=== PATIENT | female | born 1950 | race Caucasian/White ===

== ENCOUNTER 2018-01-05 09:03 | Day surgery (SDC) | payer MEDICARE, BC ==
[2018-01-05] VITALS (13 sets, daily range): BP systolic 104–141; BP diastolic 53–79
[~2018-01-05] VITALS: Ht 167.6 cm; Wt 96.1 kg
[2018-01-05] MEDS ORDERED: DULO60CA45 PO (09:27)
[2018-01-05] MEDS ORDERED: AMLO2.5T2 PO (09:29)
[2018-01-05] MEDS ORDERED: ARIP5TAB4 PO (09:29)
[2018-01-05] MEDS ORDERED: BUPR150T8 PO (09:29)
[2018-01-05] MEDS ORDERED: normal saline 1000ml 1,000 ML IV SCH (09:35)
[2018-01-05] MEDS ORDERED: diphenhydrAMINE 25mg capsule PO PRN (09:35)
[2018-01-05] MEDS ORDERED: nitroGLYCERIN 0.4mg SUBLingual tab SL PRN (09:35)
[2018-01-05] MEDS ORDERED: LORazepam 0.5 MG tablet PO PRN (09:35)
[2018-01-05 10:08] LABS: BASOPHILS # (AUTO) 0.1 X10'3 (0-0.2); BASOPHILS % (AUTO) 0.8 % (0-1); EOSINOPHILS # (AUTO) 0.3 X10'3 (0-0.9); EOSINOPHILS % (AUTO) 3.3 % (0-6); LYMPHOCYTES # (AUTO) 1.8 X10'3 (1.1-4.8); LYMPHOCYTES % (AUTO) 22.8 % (21-51); MEAN CORPUSCULAR HEMOGLOBIN 28.1 PG (27.0-31.0); MEAN CORPUSCULAR HGB CONC 33.4 % (33.0-36.5); MEAN CORPUSCULAR VOLUME 84.3 FL (78-98); MEAN PLATELET VOLUME 7.3 FL (7.4-10.4); MONOCYTES # (AUTO) 0.6 X10'3 (0-0.9); NEUTROPHILS # (AUTO) 5.2 X10'3 (1.8-7.7); NEUTROPHILS % (AUTO) 65.1 % (42-75); PRE OP HEMATOCRIT 40.6 % (35.0-45.0); PRE OP HEMOGLOBIN 13.6 g/dL (12.0-16.0); PRE OP PLATELET COUNT 322 X10'3 (140-440); RED BLOOD COUNT 4.82 X10'6 (4.20-5.60)
[2018-01-05 10:16] LABS: ALBUMIN 3.7 G/DL (3.4-5.0); ANION GAP 11 (8-16); BLOOD UREA NITROGEN 18 MG/DL (7-18); BUN/CREATININE RATIO 24.3 (6.6-38.0); CALCIUM 8.8 MG/DL (8.5-10.1); CHLORIDE 103 MMOL/L (99-107); CREATININE 0.74 MG/DL (0.40-0.90); GLUCOSE 84 MG/DL (70-104); INR 0.9 INR; POTASSIUM 3.8 MMOL/L (3.5-5.1); PROTHROMBIN TIME 9.5 SECONDS (9.0-12.0); SODIUM 142 MMOL/L (135-145); TOTAL CARBON DIOXIDE 27.6 MMOL/L (24-32); eGFR 79 ML/MIN
[2018-01-05] MEDS ORDERED: LIDOcaine 1% (10mg/ml)w/preservative injection 20ml MDV ONE (12:01)
[2018-01-05] MEDS ORDERED: iohexol 350 MG/ML 50ML vial IV ONE (12:01)
[2018-01-05] MEDS ORDERED: fentaNYL/PF 50MCG/1 ML 2ML syringe ONE (12:29)
[2018-01-05] MEDS ORDERED: midazolam 2 mg/2 ml injection ONE (12:29)
[2018-01-05] MEDS ORDERED: HYDROcodone/acetaminophen 5mg/325mg tablet PO PRN (14:15)
[2018-01-05] MEDS ORDERED: ondansetron/PF 4mg/2ml inj IV PRN (14:15)
[2018-01-05] MEDS ORDERED: HYDROcodone/acetaminophen 10/325mg tab PO PRN (14:20)
[2018-01-05] MEDS ORDERED: OXAZEpam 15mg capsule PO PRN (14:20)
[2018-01-05] MEDS ORDERED: proCHLORperazine 10 MG/2 ml inj IV PRN (14:20)
== END 2018-01-05 19:28 | disposition home or self-care (01) ==
LOC: SSTAY O 09:03
PROVIDERS: ATTEND Internal Medicine Cardiovascular Disease
DX: I25.10 Atherosclerotic heart disease of native coronary artery without angina pectoris (principal); I10 Essential (primary) hypertension; F32.9 Major depressive disorder, single episode, unspecified; F41.8 Other specified anxiety disorders; Z90.711 Acquired absence of uterus with remaining cervical stump; Z87.891 Personal history of nicotine dependence; Z90.49 Acquired absence of other specified parts of digestive tract; Z98.890 Other specified postprocedural states; Z79.899 Other long term (current) drug therapy; Z82.3 Family history of stroke
CPT/HCPCS: 36415; 71046; 80048; 85025; 85610; 93005; 93458; 99152; 99153; A6257; A6258; C1760; C1769; J1644; J2001; J2250; J3010; J7030; Q0163; Q9967; A4620

== ENCOUNTER 2018-04-16 04:59 | Inpatient (IN) | payer MEDICARE, BC ==
[2018-04-08 11:20] LABS: BASOPHILS # (AUTO) 0.1 X10'3 (0-0.2); BASOPHILS % (AUTO) 1.5 % (0-1); EOSINOPHILS # (AUTO) 0.4 X10'3 (0-0.9); EOSINOPHILS % (AUTO) 5.6 % (0-6); LYMPHOCYTES # (AUTO) 1.9 X10'3 (1.1-4.8); LYMPHOCYTES % (AUTO) 25.7 % (21-51); MEAN CORPUSCULAR HEMOGLOBIN 27.3 PG (27.0-31.0); MEAN CORPUSCULAR HGB CONC 31.8 % (33.0-36.5); MEAN CORPUSCULAR VOLUME 85.9 FL (78-98); MEAN PLATELET VOLUME 7.4 FL (7.4-10.4); MONOCYTES # (AUTO) 0.6 X10'3 (0-0.9); MONOCYTES % (AUTO) 7.7 % (2-12); NEUTROPHILS # (AUTO) 4.3 X10'3 (1.8-7.7); NEUTROPHILS % (AUTO) 59.5 % (42-75); PRE OP HEMATOCRIT 44.7 % (35.0-45.0); PRE OP HEMOGLOBIN 14.2 g/dL (12.0-16.0); PRE OP PLATELET COUNT 359 X10'3 (140-440); RED BLOOD COUNT 5.21 X10'6 (4.20-5.60); RED CELL DISTRIBUTION WIDTH 12.8 % (11.5-14.5)
[2018-04-08 11:33] LABS: ALBUMIN 3.8 G/DL (3.4-5.0); ALKALINE PHOSPHATASE 125 IU/L (46-116); BLOOD UREA NITROGEN 21 MG/DL (7-18); BUN/CREATININE RATIO 32.8 (6.6-38.0); CALCIUM 9.3 MG/DL (8.5-10.1); CHLORIDE 100 MMOL/L (99-107); CREATININE 0.64 MG/DL (0.40-0.90); PRE OP ALT 23 U/L (30-65); PRE OP ANION GAP 10 (8-16); PRE OP AST 17 U/L (10-37); PRE OP BILIRUB, TOTAL 0.2 MG/DL (0.0-1.0); PRE OP GLUCOSE 94 MG/DL (70-104); PRE OP POTASSIUM 4.2 MMOL/L (3.4-5.1); PRE OP SODIUM 140 MMOL/L (135-145); TOTAL CARBON DIOXIDE 30.2 MMOL/L (24-32); TOTAL PROTEIN 7.6 G/DL (6.4-8.2); eGFR > 90 ML/MIN
[2018-04-08 11:39] LABS: CLARITY,URINE CLEAR (Clear); COLOR,URINE YELLOW (Yellow); GLUCOSE, URINE NEGATIVE (Neg); KETONES,URINE NEGATIVE (Neg); LEUKOCYTE ESTERASE ,URINE NEGATIVE (Neg); NITRITES, URINE NEGATIVE (Neg); OCCULT BLOOD,URINE NEGATIVE (Neg); PH,URINE 6.5 (4.8-8.0); PROTEIN,URINE NEGATIVE (Neg); UROBILINOGEN,URINE 0.2 E.U/dL (0.2-1.0)
[2018-04-08 11:41] LABS: UA COLLECTION TYPE CLN CATCH MIDSTREAM
[2018-04-16] VITALS (22 sets, daily range): BP systolic 103–136; BP diastolic 51–78
[~2018-04-16] VITALS: Ht 167.6 cm; Wt 97.2 kg
[~2018-04-16 04:59] MED LIST: AMLO2.5T2 PO; ARIP5TAB4 PO; BUPR150T8 PO; DULO60CA45 PO
[2018-04-16] MEDS ORDERED: ringers solution, lacted 1,000 ML IV SCH ×2 (05:00→08:04)
[2018-04-16] MEDS ORDERED: famotidine 20mg tablet PO ONE (05:30)
[2018-04-16] MEDS ORDERED: gabapentin 300mg capsule PO ONE (05:30)
[2018-04-16] MEDS ORDERED: tranexamic acid inj. 1,000 MG in normal saline 100 ML IV ONE (05:30)
[2018-04-16] MEDS ORDERED: acetaminophen 325mg tablet PO ONE (05:30)
[2018-04-16] MEDS ORDERED: oxyCODONE SR 10mg (sust. release) tab -2 tabs (20mg) PO ONE (05:30)
[2018-04-16] MEDS ORDERED: cefazolin/dext.iso 2gm/100 ML IV ONE (05:30)
[2018-04-16] MEDS ORDERED: vancomycin inj 1,500 MG in normal saline 300ml IV soln IV ONE (05:30)
[2018-04-16] MEDS ORDERED: metoclopramide 5 mg/ml inj IV ONE (05:30)
[2018-04-16] MEDS ORDERED: celeCOXIB 100mg capsule PO ONE (05:30)
[2018-04-16] MEDS ORDERED: acetaminophen 325mg tablet PO PRN (06:00)
[2018-04-16] MEDS ORDERED: magnesium hydroxide 30ml (MOM) UD suspension PO PRN (06:00)
[2018-04-16] MEDS ORDERED: LIDOcaine 1% (10mg/ml) 2ml vial ONE ×2 (06:00→08:25)
[2018-04-16] MEDS ORDERED: diphenhydrAMINE 25mg capsule PO PRN ×2 (06:00)
[2018-04-16] MEDS ORDERED: bisacodyl 10mg suppository rectal RC PRN (06:00)
[2018-04-16] MEDS ORDERED: HYDROmorphone inj. 0.5 MG/0.5 ML DISP.SYRIN IV PRN (06:00)
[2018-04-16] MEDS ORDERED: ondansetron/PF 4mg/2ml inj IV PRN ×2 (06:00→08:05)
[2018-04-16] MEDS ORDERED: ROPIVAcaine inj 250 MG, epiNEPHrine inj 0.5 MG, CloNIDine/PF inj 80 MCG in normal salin... IU ONE (06:45)
[2018-04-16] MEDS ORDERED: vancomycin 1,000mg inj ONE (06:53)
[2018-04-16] MEDS ORDERED: ketorolac trometh. 30mg/ml inj. ONE (06:53)
[2018-04-16] MEDS ORDERED: fentaNYL/PF 50MCG/1 ML 2ML syringe ONE (07:13)
[2018-04-16] MEDS ORDERED: MIDAZolam 1mg/ml 10ml vial ONE (07:13)
[2018-04-16] MEDS ORDERED: BUPIVAcaine/dex-water/PF 7.5 mg/ml 2ml ampul ONE (07:15)
[2018-04-16] MEDS: multivitamins, therapeutics tablet PO SCH (08:00)
[2018-04-16] MEDS: ascorbic acid 500mg tablet PO SCH ×2 (08:00→20:04)
[2018-04-16] MEDS: buPROPion SR 150mg tablet PO SCH (08:00)
[2018-04-16] MEDS: gabapentin 300mg capsule PO SCH ×3 (08:00→20:04)
[2018-04-16] MEDS: aripiprazole 5mg tablet PO SCH (08:00)
[2018-04-16] MEDS: amLODIPine 2.5mg tablet PO SCH (08:00)
[2018-04-16] MEDS ORDERED: morphine 4 MG/ML inj SYRINge IV PRN ×2 (08:05)
[2018-04-16] MEDS ORDERED: proCHLORperazine 10 MG/2 ml inj IV PRN (08:05)
[2018-04-16] MEDS ORDERED: meperidine/PF 25mg/ml syringe IV PRN ×3 (08:05)
[2018-04-16] MEDS ORDERED: BUPIVAcaine/PF 2.5mg/ml (0.25%) 10ml vial ONE (08:25)
[2018-04-16] MEDS ORDERED: triamcinolone acetonide 40mg/ml inj ONE (08:25)
[2018-04-16] MEDS: aspirin 325mg tablet PO SCH (08:30)
[2018-04-16] MEDS ORDERED: PAIN PUMP IJ SCH (08:40)
[2018-04-16] MEDS ORDERED: ROPIVACAINE HCL IJ SCH (08:40)
--- NOTE | 2018-04-16 09:58 | NUR ---
Received from OR via [facility]TH[facility] BED [facility] , accompanied by Anesthesiologist JSOÉ LUIS and report given by Anesthesiolgist. PATIENT WITH 20G PIV IN LEFT HAND RUNNING LR AT 100. DENIES PAIN. SENSATION LEVEL AT L1 CURRENTLY. ON Q HOOKED UP AT 8CC. PATIENT WITH + DP TO RIGHT FOOT. KNEE WRAP AND POWDER PACK IN PLACE. NO DRAINAGE PRESENT. SCDS AND KAHLIL CELIS. 3L NASAL CANNULA ON WITH 98% SATURATIONS. Addendum: 04/16/18 at 1030 by Ja Velázquez RN, RN Amended: Links added.
--- NOTE | 2018-04-16 11:38 | NUR ---
Report called to receiving nurse. Transferred via ORTHO BED WITHO OH WITH ONE BAG OF Belongings . Special Issues communicated to receiving nurse SUSANNE WELCH. BED LOW, CALL LIGHT PRESENT. DENIES PAIN. ALL LINES INTACT. VSS. Addendum: 04/16/18 at 1149 by Ja Velázquez RN, RN Amended: Links added.
--- NOTE | 2018-04-16 11:40 | NUR ---
Pt transferred from Recovery Room to 4015b via bed. Pt drowsy but easily aroused. Pt denied any pain or discomfort. VSS. Dressing to R hip area CDI with ON Q pump running at 8ml/her per order. Addendum: 04/16/18 at 1500 by Landon Driver RN Dressing to R Knee, not R hip.
[2018-04-16] MEDS ORDERED: TRANEXAMIC ACID IV ONE (13:00)
[2018-04-16] MEDS ORDERED: NORMAL SALINE IV ONE (13:00)
[2018-04-16] MEDS: potassium cl 20mEq in 1/2 NS 1,000 ML IV SCH ×2 (13:01→13:56)
--- NOTE | 2018-04-16 13:10 | NUR ---
Pt reported R hip pain at this time. Increased ON Q Pump to 10ml/hr per order. Addendum: 04/16/18 at 1500 by Landon Driver RN R knee pain, not R hip.
[2018-04-16] MEDS ORDERED: cefazolin/dext.iso 2gm/100ml 100 ML IV SCH (14:00)
--- NOTE | 2018-04-16 14:20 | NUR ---
Pt reported decreased R Knee pain.
--- NOTE | 2018-04-16 15:30 | NUR ---
ON Q pump increased to 12ml/hr per order for pain of 6/10.
--- NOTE | 2018-04-16 16:32 | NUR ---
Cal 04/20 ^ pro ed done Written high protein education handout provided with verbal review r/t wound heal. Addendum: 04/16/18 at [address] Amended: Links added.
[2018-04-16] MEDS: cefazolin/dext.iso 2gm/100ml 100 ML IV SCH (16:43)
--- NOTE | 2018-04-16 18:09 | NUR ---
PATIENT REPORT RECEIVED FROM SUSANNE WELCH.
--- NOTE | 2018-04-16 18:10 | NUR ---
Increased ON Q Pump to 14ml/hr to R knee for pt report of increased pain during Bedside report with oncoming nurse Nora Rice RN.
[2018-04-16] MEDS: sennosides 8.6mg tablet PO SCH (20:06)
[2018-04-17] MEDS: cefazolin/dext.iso 2gm/100ml 100 ML IV SCH ×2 (00:01→07:57)
[2018-04-17] MEDS: potassium cl 20mEq in 1/2 NS 1,000 ML IV SCH ×4 (00:05→19:29)
[2018-04-17 02:00] VITALS: BP 127/56
[2018-04-17] MEDS: oxyCODONE/APAP 10/325mg tablet PO PRN ×4 (05:26→18:52)
--- NOTE | 2018-04-17 06:00 | NUR ---
PATIENT REFUSED MILK OF MAG. LAST BM 04/12/18.
--- NOTE | 2018-04-17 06:06 | NUR ---
PATIENT REPORT GIVEN TO SUSANNE WELCH.
[2018-04-17 06:22] LABS: BASOPHILS % (AUTO) 0.1 % (0-1); EOSINOPHILS % (AUTO) 0 % (0-6); HEMATOCRIT 33.6 % (35.0-45.0); HEMOGLOBIN 11.1 g/dl (12.0-16.0); LYMPHOCYTES # (AUTO) 0.6 X10'3 (1.1-4.8); LYMPHOCYTES % (AUTO) 5.9 % (21-51); MEAN CORPUSCULAR HEMOGLOBIN 28.5 PG (27.0-31.0); MEAN CORPUSCULAR VOLUME 86.4 FL (78-98); MEAN PLATELET VOLUME 7.3 FL (7.4-10.4); MONOCYTES # (AUTO) 0.2 X10'3 (0-0.9); MONOCYTES % (AUTO) 1.8 % (2-12); NEUTROPHILS # (AUTO) 8.6 X10'3 (1.8-7.7); NEUTROPHILS % (AUTO) 92.2 % (42-75); PLATELET COUNT 265 X10'3 (140-440); RED BLOOD COUNT 3.89 X10'6 (4.20-5.60); RED CELL DISTRIBUTION WIDTH 12.6 % (11.5-14.5); WHITE BLOOD COUNT 9.4 X10'3 (4.5-11.0)
[2018-04-17 06:46] LABS: ANION GAP 9 (8-16); CHLORIDE 105 MMOL/L (99-107); POTASSIUM 3.9 MMOL/L (3.5-5.1); SODIUM 139 MMOL/L (135-145); TOTAL CARBON DIOXIDE 25.2 MMOL/L (24-32)
[2018-04-17 07:00] VITALS: BP 149/61
[2018-04-17] MEDS: aspirin 325mg tablet PO SCH (07:57)
[2018-04-17] MEDS: ascorbic acid 500mg tablet PO SCH ×2 (07:57→20:27)
[2018-04-17] MEDS: amLODIPine 2.5mg tablet PO SCH (07:57)
[2018-04-17] MEDS: aripiprazole 5mg tablet PO SCH (07:58)
[2018-04-17] MEDS: buPROPion SR 150mg tablet PO SCH (07:58)
[2018-04-17] MEDS: gabapentin 300mg capsule PO SCH ×3 (08:04→20:27)
[2018-04-17] MEDS: multivitamins, therapeutics tablet PO SCH (08:05)
[2018-04-17] MEDS: duloxetine 30mg CAPSULE.DR PO SCH (08:05)
[2018-04-17 10:01] VITALS: BP 173/78
[2018-04-17] MEDS: HYDROmorphone 1 mg/ml syringe IV PRN (10:41)
[2018-04-17 18:00] VITALS: BP 127/55
--- NOTE | 2018-04-17 18:30 | NUR ---
Patient in room ORTHO 4015. I have received report from SUSANNE WELCH and had the opportunity to ask questions and assume patient care.
[2018-04-17] MEDS: sennosides 8.6mg tablet PO SCH (20:27)
[2018-04-17] MEDS: celeCOXIB 100mg capsule PO SCH (20:27)
[2018-04-17 22:00] VITALS: BP 143/67
--- NOTE | 2018-04-18 00:15 | NUR ---
ON-Q MEDS. CONSUMED AND ON-Q CATHETER REMOVED AND PT. TOLERATED PROCEDURE WELL.
[2018-04-18] MEDS: oxyCODONE/APAP 5-325mg tablet PO PRN ×4 (03:48→18:52)
[2018-04-18] MEDS: HYDROmorphone 1 mg/ml syringe IV PRN (05:40)
[2018-04-18 06:00] VITALS: BP 165/75
--- NOTE | 2018-04-18 06:25 | NUR ---
Problems reprioritized. Patient report given, questions answered & plan of care reviewed with MERCY WELCH.
--- NOTE | 2018-04-18 06:30 | NUR ---
I received report from Gigi WELCH
[2018-04-18 06:48] LABS: BASOPHILS % (AUTO) 0.2 % (0-1); EOSINOPHILS % (AUTO) 0.1 % (0-6); HEMATOCRIT 32.9 % (35.0-45.0); HEMOGLOBIN 10.6 g/dl (12.0-16.0); LYMPHOCYTES # (AUTO) 1.2 X10'3 (1.1-4.8); LYMPHOCYTES % (AUTO) 9.7 % (21-51); MEAN CORPUSCULAR HEMOGLOBIN 27.9 PG (27.0-31.0); MEAN CORPUSCULAR VOLUME 86.9 FL (78-98); MEAN PLATELET VOLUME 7.6 FL (7.4-10.4); MONOCYTES # (AUTO) 1.2 X10'3 (0-0.9); MONOCYTES % (AUTO) 9.2 % (2-12); NEUTROPHILS # (AUTO) 10.1 X10'3 (1.8-7.7); NEUTROPHILS % (AUTO) 80.8 % (42-75); PLATELET COUNT 289 X10'3 (140-440); RED BLOOD COUNT 3.79 X10'6 (4.20-5.60); RED CELL DISTRIBUTION WIDTH 12.6 % (11.5-14.5); WHITE BLOOD COUNT 12.6 X10'3 (4.5-11.0)
[2018-04-18] MEDS: buPROPion SR 150mg tablet PO SCH (08:03)
[2018-04-18] MEDS: duloxetine 30mg CAPSULE.DR PO SCH (08:04)
[2018-04-18] MEDS: ascorbic acid 500mg tablet PO SCH ×2 (08:06→20:08)
[2018-04-18] MEDS: gabapentin 300mg capsule PO SCH ×3 (08:06→20:07)
[2018-04-18] MEDS: aripiprazole 5mg tablet PO SCH (08:06)
[2018-04-18] MEDS: amLODIPine 2.5mg tablet PO SCH (08:06)
[2018-04-18] MEDS: celeCOXIB 100mg capsule PO SCH ×2 (08:06→20:07)
[2018-04-18] MEDS: multivitamins, therapeutics tablet PO SCH (08:06)
[2018-04-18] MEDS: aspirin 325mg tablet PO SCH (08:08)
[2018-04-18 10:00] VITALS: BP 159/69
[2018-04-18 18:00] VITALS: BP 149/64
--- NOTE | 2018-04-18 18:20 | NUR ---
Patient in room ORTHO 4015. I have received report from YURI Jimenez and had the opportunity to ask questions and assume patient care.
--- NOTE | 2018-04-18 18:46 | NUR ---
PATIENT REPORT GIVEN TO GEO WELCH
[2018-04-18] MEDS: sennosides 8.6mg tablet PO SCH (20:08)
[2018-04-18 22:00] VITALS: BP 135/67
[2018-04-19] MEDS: oxyCODONE/APAP 5-325mg tablet PO PRN ×3 (04:42→13:23)
--- NOTE | 2018-04-19 06:30 | NUR ---
Problems reprioritized. Patient report given, questions answered & plan of care reviewed with YURI Swenson.
--- NOTE | 2018-04-19 06:41 | NUR ---
RECEIVED REPORT FROM ARTHUR WELCH
[2018-04-19 07:01] VITALS: BP 161/66
[2018-04-19 08:26] LABS: BASOPHILS # (AUTO) 0.1 X10'3 (0-0.2); BASOPHILS % (AUTO) 0.5 % (0-1); EOSINOPHILS # (AUTO) 0.3 X10'3 (0-0.9); EOSINOPHILS % (AUTO) 2.7 % (0-6); HEMATOCRIT 31.3 % (35.0-45.0); HEMOGLOBIN 10.4 g/dl (12.0-16.0); LYMPHOCYTES # (AUTO) 2.7 X10'3 (1.1-4.8); LYMPHOCYTES % (AUTO) 26.7 % (21-51); MEAN CORPUSCULAR HEMOGLOBIN 28.4 PG (27.0-31.0); MEAN CORPUSCULAR HGB CONC 33.3 % (33.0-36.5); MEAN CORPUSCULAR VOLUME 85.3 FL (78-98); MEAN PLATELET VOLUME 7.6 FL (7.4-10.4); MONOCYTES % (AUTO) 9.4 % (2-12); NEUTROPHILS # (AUTO) 6.1 X10'3 (1.8-7.7); NEUTROPHILS % (AUTO) 60.7 % (42-75); PLATELET COUNT 299 X10'3 (140-440); RED BLOOD COUNT 3.66 X10'6 (4.20-5.60); WHITE BLOOD COUNT 10.2 X10'3 (4.5-11.0)
[2018-04-19] MEDS: multivitamins, therapeutics tablet PO SCH (08:39)
[2018-04-19] MEDS: aspirin 325mg tablet PO SCH (08:39)
[2018-04-19] MEDS: gabapentin 300mg capsule PO SCH ×2 (08:39→13:23)
[2018-04-19] MEDS: amLODIPine 2.5mg tablet PO SCH (08:39)
[2018-04-19] MEDS: celeCOXIB 100mg capsule PO SCH (08:39)
[2018-04-19] MEDS: aripiprazole 5mg tablet PO SCH (08:39)
[2018-04-19] MEDS: buPROPion SR 150mg tablet PO SCH (08:40)
[2018-04-19] MEDS: duloxetine 30mg CAPSULE.DR PO SCH (08:40)
[2018-04-19] MEDS: ascorbic acid 500mg tablet PO SCH (08:40)
[2018-04-19] MEDS ORDERED: ASPI-1 PO (12:24)
--- NOTE | 2018-04-19 14:31 | NUR ---
Patient was discharged IV and tele was removed from patient. patient was alert and oriented at time of discharge. an extra guilherme dressing was sent with the patient. Patient was wheeled out to car
== END 2018-04-19 13:35 | disposition home or self-care (01) | DRG 470 ==
LOC: PAS IN 04:59 → EDSTATUS 10:45 → ORTHO 4S 11:35
PROVIDERS: ADMIT Orthopaedic Surgery; ATTEND Orthopaedic Surgery
PROC: 8E0Y0CZ Robotic Assisted Procedure of Lower Extremity, Open Approach (ICD-10-PCS; 2018-04-16)
PROC: 3E0U33Z Introduction of Anti-inflammatory into Joints, Percutaneous Approach (ICD-10-PCS; 2018-04-16)
PROC: 3E0U3BZ Introduction of Anesthetic Agent into Joints, Percutaneous Approach (ICD-10-PCS; 2018-04-16)
PROC: 0SRC0J9 Replacement of Right Knee Joint with Synthetic Substitute, Cemented, Open Approach (ICD-10-PCS; principal; 2018-04-16 07:05)
DX: M17.0 Bilateral primary osteoarthritis of knee (principal); D62 Acute posthemorrhagic anemia; I10 Essential (primary) hypertension; F32.9 Major depressive disorder, single episode, unspecified; Z87.891 Personal history of nicotine dependence; Z90.710 Acquired absence of both cervix and uterus
CPT/HCPCS: 36415; 71046; 73560; 80051; 80053; 81003; 85025; 86885; 86900; 86901; 87070; 97110; 97116; 97162; 97530; A6449; A6455; A7000; C1713; C1758; C1776; G0378; J0171; J0690; J0735; J1170; J1885; J2250; J2765; J2795; J3010; J3301; J3370; J3490; J7030; J7120

== ENCOUNTER 2020-10-14 21:31 | Emergency (ER) | payer MEDICARE, BC ==
[~2020-10-14] VITALS: Ht 167.6 cm; Wt 72.7 kg
[~2020-10-14 21:31] MED LIST changes: +ARIP5TAB14 PO; -ARIP5TAB4 PO; +ASPI-1 PO
[2020-10-14 22:05] VITALS: BP 133/66
[2020-10-14 23:45] LABS: BASOPHILS # (AUTO) 0.1 X10'3 (0-0.2); BASOPHILS % (AUTO) 0.4 % (0-1); EOSINOPHILS # (AUTO) 0.4 X10'3 (0-0.9); EOSINOPHILS % (AUTO) 3.1 % (0-6); HEMATOCRIT 39.4 % (35.0-45.0); HEMOGLOBIN 12.9 g/dl (12.0-16.0); LYMPHOCYTES # (AUTO) 1.7 X10'3 (1.1-4.8); LYMPHOCYTES % (AUTO) 13.4 % (21-51); MEAN CORPUSCULAR HEMOGLOBIN 27.9 PG (27.0-31.0); MEAN CORPUSCULAR HGB CONC 32.8 g/dL (33.0-36.5); MEAN CORPUSCULAR VOLUME 85.1 FL (78-98); MONOCYTES % (AUTO) 8.1 % (2-12); NEUTROPHILS # (AUTO) 9.4 X10'3 (1.8-7.7); PLATELET COUNT 265 X10'3 (140-440); RED BLOOD COUNT 4.63 X10'6 (4.20-5.60); RED CELL DISTRIBUTION WIDTH 15.4 % (11.5-14.5); WHITE BLOOD COUNT 12.6 X10'3 (4.5-11.0)
[2020-10-14 23:52] LABS: ALANINE AMINOTRANSFERASE 20 U/L (12-78); ALBUMIN 3.4 G/DL (3.4-5.0); ALKALINE PHOSPHATASE 101 IU/L (46-116); ANION GAP 10 (8-16); ASPARTATE AMINO TRANSFERASE 14 U/L (10-37); BILIRUBIN,TOTAL 0.3 MG/DL (0.1-1.0); BLOOD UREA NITROGEN 13 MG/DL (7-18); BUN/CREATININE RATIO 13.1 (6.6-38.0); CALCIUM 8.6 MG/DL (8.5-10.1); CHLORIDE 105 MMOL/L (99-107); CREATININE 0.99 MG/DL (0.40-0.90); GLUCOSE 105 MG/DL (70-104); POTASSIUM 3.4 MMOL/L (3.5-5.1); SODIUM 143 MMOL/L (135-145); TOTAL CARBON DIOXIDE 27.7 MMOL/L (24-32); TOTAL PROTEIN 6.7 G/DL (6.4-8.2); eGFR 56 ML/MIN
[2020-10-14 23:59] LABS: ETHANOL < 0.010 GM/DL (0.0-0.010); TROPONIN I < 0.04 NG/ML (0.0-0.05)
[2020-10-15 00:25] LABS: COLOR,URINE YELLOW (Yellow); GLUCOSE, URINE NEGATIVE (Neg); KETONES,URINE NEGATIVE (Neg); LEUKOCYTE ESTERASE ,URINE MODERATE (Neg); NITRITES, URINE NEGATIVE (Neg); OCCULT BLOOD,URINE TRACE-INTACT (Neg); PROTEIN,URINE NEGATIVE (Neg); UROBILINOGEN,URINE 0.2 E.U/dL (0.2-1.0)
[2020-10-15 00:31] LABS: CLARITY,URINE SLIGHTLY CLOUDY (Clear); UA COLLECTION TYPE CLN CATCH MIDSTREAM
[2020-10-15 00:32] LABS: BACTERIA,URINE 1+ /HPF (Neg); RBC,URINE 0-2 /HPF (0-2); SQUAMOUS EPITHELIAL CELL,UR MODERATE /LPF (FEW); YEAST FEW /HPF (NEGATIVE)
[2020-10-15 00:33] LABS: MUCUS STRANDS MODERATE /LPF (Neg)
[2020-10-15 00:35] LABS: URINE AMPHETAMINE SCREEN POSITIVE (Neg); URINE BARBITUATE SCREEN NEGATIVE (Neg); URINE BENZODIAZEPINES SCREEN POSITIVE (Neg); URINE CANNABINOID SCREEN NEGATIVE (Neg); URINE COCAINE SCREEN NEGATIVE (Neg); URINE METHADONE SCREEN NEGATIVE (Neg); URINE OPIATE SCREEN NEGATIVE (Neg); URINE PHENCYCLIDINE SCREEN NEGATIVE (Neg)
[2020-10-15] MEDS ORDERED: potassium Cl 20 mEq SR tablet PO ONE (00:35)
== END 2020-10-15 01:22 | disposition home or self-care (01) ==
LOC: ER 21:31
DX: R53.1 Weakness (principal); E87.6 Hypokalemia; Z79.82 Long term (current) use of aspirin; Z79.899 Other long term (current) drug therapy; Z86.72 Personal history of thrombophlebitis; R47.81 Slurred speech; W18.30XA Fall on same level, unspecified, initial encounter
CPT/HCPCS: 36415; 70450; 71045; 80053; 80305; 80320; 81001; 84484; 85025; 87088; 93005; 99285

== ENCOUNTER 2021-05-27 12:17 | Emergency (ER) | payer MEDICARE, BC ==
[~2021-05-27] VITALS: Ht 165.1 cm; Wt 97.0 kg
[~2021-05-27 12:17] MED LIST changes: -DULO60CA45 PO; +DULO60CA59 PO
[2021-05-27 13:19] LABS: BASOPHILS # (AUTO) 0.1 X10'3 (0-0.2); BASOPHILS % (AUTO) 1.5 % (0-1); EOSINOPHILS # (AUTO) 0.4 X10'3 (0-0.9); EOSINOPHILS % (AUTO) 5.8 % (0-6); HEMATOCRIT 42.2 % (35.0-45.0); LYMPHOCYTES # (AUTO) 2.1 X10'3 (1.1-4.8); LYMPHOCYTES % (AUTO) 28.7 % (21-51); MEAN CORPUSCULAR HEMOGLOBIN 28.6 PG (27.0-31.0); MEAN CORPUSCULAR HGB CONC 33.2 g/dL (33.0-36.5); MEAN CORPUSCULAR VOLUME 86.3 FL (78-98); MEAN PLATELET VOLUME 7.1 FL (7.4-10.4); MONOCYTES # (AUTO) 0.8 X10'3 (0-0.9); MONOCYTES % (AUTO) 10.9 % (2-12); NEUTROPHILS # (AUTO) 3.8 X10'3 (1.8-7.7); NEUTROPHILS % (AUTO) 53.1 % (42-75); PLATELET COUNT 288 X10'3 (140-440); RED BLOOD COUNT 4.89 X10'6 (4.20-5.60); RED CELL DISTRIBUTION WIDTH 13.9 % (11.5-14.5); WHITE BLOOD COUNT 7.2 X10'3 (4.5-11.0)
[2021-05-27 13:22] LABS: ALANINE AMINOTRANSFERASE 28 U/L (12-78); ALBUMIN 3.9 G/DL (3.4-5.0); ALBUMIN/GLOBULIN RATIO 1.2 (1.1-1.5); ALKALINE PHOSPHATASE 118 IU/L (46-116); ANION GAP 10 (8-16); ASPARTATE AMINO TRANSFERASE 20 U/L (10-37); BILIRUBIN,TOTAL 0.3 MG/DL (0.1-1.0); BLOOD UREA NITROGEN 17 MG/DL (7-18); CALCIUM 8.6 MG/DL (8.5-10.1); CHLORIDE 104 MMOL/L (99-107); CREATININE 0.85 MG/DL (0.40-0.90); GLUCOSE 95 MG/DL (70-104); POTASSIUM 3.9 MMOL/L (3.5-5.1); SODIUM 141 MMOL/L (135-145); TOTAL CARBON DIOXIDE 27.5 MMOL/L (24-32); TOTAL PROTEIN 7.1 G/DL (6.4-8.2); eGFR 66 ML/MIN
[2021-05-27 13:31] LABS: LIPASE 74 U/L (73-393)
[2021-05-27 14:08] VITALS: BP 109/64
== END 2021-05-27 14:32 | disposition home or self-care (01) ==
LOC: ER 12:17
DX: R07.89 Other chest pain (principal); J44.9 Chronic obstructive pulmonary disease, unspecified; R60.0 Localized edema; Z72.89 Other problems related to lifestyle; Z79.82 Long term (current) use of aspirin; Z79.899 Other long term (current) drug therapy
CPT/HCPCS: 36415; 71045; 80053; 83690; 83880; 84484; 85025; 93005; 99285